=== PATIENT | male | born 1960 | race Caucasian/White ===

== ENCOUNTER → 2021-03-04 10:39 | Outpatient (BNVA) | payer BC, SELFPAY | PROVIDERS: Visit Provider Urology | DX: N30.10 Interstitial cystitis (chronic) without hematuria (principal); R35.1 Nocturia | CPT/HCPCS: 51798; 81002 ==

== ENCOUNTER → 2022-12-20 13:59 | Outpatient (BNVA) | payer BC, SELFPAY | PROVIDERS: PCP Internal Medicine; Visit Provider Nurse Practitioner Family | DX: R35.1 Nocturia (principal); N30.10 Interstitial cystitis (chronic) without hematuria | CPT/HCPCS: 51798 ==

== ENCOUNTER 2023-01-13 09:49 | Outpatient (REF) | payer BC, SELFPAY ==
--- NOTE | ~2023-01-13 | US_ITS ---
EXAMINATION: US RETROPERITONEAL COMPLETE (RENAL) CLINICAL INFORMATION: Nocturia. COMPARISON: CT pelvis 10/27/2011. TECHNIQUE: Real-time imaging of the kidneys and bladder. FINDINGS: RIGHT KIDNEY: 11.7 x 5.9 x 4.7 cm (SAG x AP x TRV). The kidney is normal in size, contour, and echogenicity. Renal cortical thickness is normal. No calculi or focal parenchymal lesions. No hydronephrosis. LEFT KIDNEY: 11.5 x 5.8 x 5.4 cm (SAG x AP x TRV). The kidney is normal in size, contour, and echogenicity. Renal cortical thickness is normal. No calculi or focal parenchymal lesions. No hydronephrosis. BLADDER: Well distended and normal. Bilateral ureteral jets are demonstrated. Prevoid bladder volume is 211.8 mL. Postvoid bladder volume is 38.0 mL. Enlarged heterogeneous prostate, volume 98 mL. US/US retroperitoneal comp IMPRESSION: Normal-appearing kidneys. BPH with 98 mL prostate and 38 mL postvoid residual.
== END 2023-01-13 09:50 | disposition home or self-care (01) ==
LOC: HO.US 09:49
PROVIDERS: PCP Internal Medicine; Visit Provider Urology
DX: R35.1 Nocturia (principal); N30.10 Interstitial cystitis (chronic) without hematuria
CPT/HCPCS: 76770

== ENCOUNTER → 2023-02-03 14:39 | Outpatient (BNVA) | payer BC, SELFPAY | PROVIDERS: PCP Internal Medicine; Visit Provider Nurse Practitioner Family | DX: Z13.89 Encounter for screening for other disorder (principal) ==

== ENCOUNTER 2023-08-18 14:33 | Outpatient (AMB) | payer BC, SELFPAY ==
--- NOTE | 2023-08-18 14:40 | MHC.OFFVIS ---
Intake Intake Visit Reasons: 6mo follow up pvr/ PSA(set) Intake Note: Patient is present for follow up visiut interstitial cystitis/nocturia/psa (psa 2.1) Urology Medications: D/C alfuzosin, finasteride Blood Thinner: aspirin PVR: 0ml's Firer Automatic Stoker Required: No Accompanied by: Self / Same As Patient Allergies hazelnut Allergy (Severe, Unverified 08/18/23 15:08) ORAL SWELLING Medication List - Last Reconciled 08/18/23 by MYKEL Smyth- alfuzosin ER 10 mg PO BEDTIME 90 days aspirin 81 mg PO DAILY atorvastatin 20 mg PO DAILY finasteride 5 mg PO DAILY 90 days valsartan-hydrochlorothiazide 160-12.5 mg 1 tab PO DAILY HPI HPI Comments History of Present Illness Details Per is a pleasant 62-year-old male patient of . He presents to the office today for follow-up of his interstitial cystitis and benign prostatic hyperplasia. Recent PSA results reviewed with the patient today. PSAs are as follows. 01/05--3.9 08/05--2.1 When asked patient reports compliance with 5 mg of finasteride daily. Previous workup has included a retroperitoneal ultrasound noting normal appearing kidneys. BPH with 98 mL prostate and 38 mL postvoid residual. Patient reports he has since stopped taking alfuzosin as he feels lower urinary tract symptoms have improved significantly. He denies urinary urgency, urinary frequency, incontinence, nocturia, hematuria, dysuria, foul smelling urine, changes to urinary stream, flank pain, fever, and or chills. He otherwise offers no issues or concerns at this time. Review of Systems Const All systems reviewed & are unremarkable except as noted in HPI and below Reports no additional complaints Eyes Reports no additional complaints ENT Reports no additional complaints Card Reports no additional complaints Resp Reports no additional complaints GI Reports no additional complaints Reports as per HPI Musc Reports no additional complaints Neuro Reports no additional complaints Psych Reports no additional complaints Endo Reports no additional complaints Jarrod/Lymph Reports no additional complaints Aller/Immun Reports no additional complaints Physical Exam Const General: cooperative, healthy appearing, comfortable, no acute distress, well developed, alert and awake Nutritional Appearance: average body habitus Orientation/consciousness: patient oriented x3 Limitations: no limitations HEENT Head: Yes normal to inspection, Yes normocephalic and Yes atraumatic Ears: hearing grossly normal bilaterally Eyes General: appearance normal, both eyes and all related structures Neck Neck: Yes normal visual inspection and Yes trachea midline Chest Chest palpation & inspection: normal inspection of the chest Resp Effort & Inspection: normal respiratory effort and able to speak in complete sentences Cardio Rate: regular rate GI Inspection: Yes normal to inspection General: Yes no CVA tenderness Back/Spine/Pelvis Back: no CVA tenderness Skin General skin exam: no rashes or lesions noted Neuro General: patient oriented x3 Extrem General: Yes normal to inspection Psych Appearance: grossly normal and well kempt Mental Status: mental status grossly normal Speech and movement: Normal speech and movement present and Clear speech present Affect: normal affect Attitude: cooperative Thought process: Normal thought process present Thought content: Normal thought content present Insight: Fair insight present (Psych) Judgement: Fair judgement present (Psych) Office Procedures Post Void Residual Post Residual Void Post Void Residual (PVR): 0 [id number]-[id number] Void Residual by ultrasound Results AMB Urinalysis, Automated UA Leukoctes 0 Jonas/uL Last Edit by beRecruited on 08/18/23 14:59 UA Nitrite Negative Last Edit by beRecruited on 08/18/23 14:59 UA Urobilinogen 0.2 mg/dL Last Edit by beRecruited on 08/18/23 14:59 UA Protein 0 mg/dL Last Edit by beRecruited on 08/18/23 14:59 UA pH 6.0 Last Edit by beRecruited on 08/18/23 14:59 UA Blood 0 Kirk/uL Last Edit by beRecruited on 08/18/23 14:59 UA Specific [place] 1.020 Last Edit by beRecruited on 08/18/23 14:59 UA Ketone Negative Last Edit by beRecruited on 08/18/23 14:59 UA Bilirubin 0 mg/dL Last Edit by beRecruited on 08/18/23 14:59 UA Glucose 0 mg/dL Last Edit by beRecruited on 08/18/23 14:59 Results Reviewed Results Reviewed: Laboratory Last Values Urine pH (Auto) 6.0 08/18/23 14:43 Specific [place] (Auto) 1.020 08/18/23 14:43 Urine Protein (Auto) 0 mg/dL 08/18/23 14:43 Glucose (UA)(Auto) 0 mg/dL 08/18/23 14:43 Urine Ketones (Auto) Negative 08/18/23 14:43 Urine Blood (Auto) 0 Kirk/uL 08/18/23 14:43 Urine Nitrite (Auto) Negative 08/18/23 14:43 Urine Bilirubin (Auto) 0 mg/dL 08/18/23 14:43 Urine Urobilinogen (Auto) 0.2 mg/dL 08/18/23 14:43 Leukocyte Esterase (Auto) 0 Jonas/uL 08/18/23 14:43 Assessment & Plan Assessment & Plan (1) BPH loc w urin obs/LUTS: Code(s): N40.1 - Benign prostatic hyperplasia with lower urinary tract symptoms Plan In office urinalysis results reviewed with the patient today. PVR 0 mL. Continue finasteride 5 mg daily as discussed and prescribed. Patient denies any bothersome urinary issues or concerns at this time. Recent PSA results reviewed with the patient today; as noted above. PSA in 6 months. Stop Alfuzosin Follow-up in 6 months with PSA to be completed prior; or sooner with any issues, concerns, and or questions. Orders: Orders AMB Urinalysis Automated 08/18/23 Z13.9 - Encounter for screening, unspecified AMB Post Void Residual by ultrasound 08/18/23 N40.1 - Benign prostatic hyperplasia with lower urinary tract symptoms Prostate Specific Antigen 6 Months N40.1 - Benign prostatic hyperplasia with lower urinary tract symptoms Medications: Discontinued alfuzosin ER Take before bedtime Discontinued Reason: Change Referral Type 10 mg PO BEDTIME 90 tabs 1RF 90 days N32.0 - Bladder-neck obstruction, N40.1 - Benign prostatic hyperplasia with lower urinary tract symptoms, R33.9 - Retention of urine, unspecified, R35.1 - Nocturia, R39.12 - Poor urinary stream Patient Instructions: The patient had an opportunity to ask questions regarding the treatment plan. All questions were answered. Physical exam, labs, and imaging were discussed and reviewed in detail. As well as risks, benefits, and discussion of treatment choices. No major barriers to understanding were identified. The patient expressed understanding and agreement with the above treatment plan. The patient was made aware they should contact our office by phone for worsening of their current condition, the appearance of new symptoms, or with any questions or concerns. Compliance is encouraged with any medications and follow up testing that is ordered. It is a privilege to be allowed the opportunity to participate in? your urological care.? Again, if you have any questions or concerns If you have any questions or concerns please do not hesitate to contact me. The office is [phone]. This note is constructed using voice recognition software. While every effort has been made to ensure accuracy theater technician errors may have been included. Yours sincerely, MYKEL Smyth-ABHILASH Coding Level of Care Code Est Pt Level 3 (54662) Diagnoses BPH loc w urin obs/LUTS N40.1 CPT Codes Post Residual Void - PVR CPT Code: 57824-Bgmw Void Residual by ultrasound ([id number])
== END 2023-08-18 15:08 | disposition home or self-care (01) ==
PROVIDERS: PCP Internal Medicine; Visit Provider Nurse Practitioner Family
DX: Z13.9 Encounter for screening, unspecified (principal)
CPT/HCPCS: 99213

== ENCOUNTER → 2023-08-18 14:33 | Outpatient (BNVA) | payer BC, SELFPAY | PROVIDERS: Visit Provider Nurse Practitioner Family | DX: N40.1 Benign prostatic hyperplasia with lower urinary tract symptoms (principal); N13.8 Other obstructive and reflux uropathy; N30.10 Interstitial cystitis (chronic) without hematuria; Z79.899 Other long term (current) drug therapy | CPT/HCPCS: 51798; 81003 ==

== ENCOUNTER 2024-02-22 13:36 | Outpatient (AMB) | payer MEDICARE, SELFPAY ==
--- NOTE | 2024-02-22 13:42 | A.OFFVIS_ITS ---
Intake Intake Visit Reasons: 6m/PSA/PVR(set) Intake Note: Patient presents today for a follow up on: PSA/PVR Meds- Finasteride Allergies to Antibiotic- No Known Allergies Blood Thinner- Xarelto 20mg Post Void Residual: 0ml Surgical Orderly Required: No Accompanied by: Self / Same As Patient Allergies hazelnut Allergy (Severe, Verified 02/22/24 20:53) ORAL SWELLING Medication List - Last Reconciled 02/22/24 by MYKEL Smyth- atorvastatin 20 mg PO DAILY diltiazem HCl ER 120 mg PO DAILY finasteride 5 mg PO DAILY 90 days rivaroxaban (Xarelto) 20 mg PO DAILY valsartan-hydrochlorothiazide 160-12.5 mg 1 tab PO DAILY HPI HPI Comments History of Present Illness Details Setven is a pleasant 63-year-old male patient of Dr. Barakat. He presents to the office today for follow-up of his interstitial cystitis and benign prostatic hyperplasia. Recent PSA results reviewed with the patient today. PSAs are as follows. 01/05--3.9 08/05--2.1 03/05--1.2 When asked patient reports compliance with 5 mg of finasteride daily. Previous workup has included a retroperitoneal ultrasound noting normal appearing kidneys. BPH with 98 mL prostate and 38 mL postvoid residual. When asked he denies urinary urgency, urinary frequency, incontinence, nocturia, hematuria, dysuria, foul smelling urine, changes to urinary stream, flank pain, fever, and or chills. He has since stopped taking his alfuzosin as he feels his lower urinary tract symptoms have significantly improved. He discusses his upcoming trip for 5 months in [place]. He discusses his excitement to a build home there. In discussion with the patient today regarding his urological issues and concerns he does report noting low libido. Discussed further workup. He otherwise offers no issues or concerns at this time. Review of Systems Const All systems reviewed & are unremarkable except as noted in HPI and below Reports no additional complaints Eyes Reports no additional complaints ENT Reports no additional complaints Card Reports no additional complaints Resp Reports no additional complaints GI Reports no additional complaints Reports as per HPI Musc Reports no additional complaints Neuro Reports no additional complaints Psych Reports no additional complaints Endo Reports no additional complaints Jarrod/Lymph Reports no additional complaints Aller/Immun Reports no additional complaints Physical Exam Const General: cooperative, healthy appearing, comfortable, no acute distress, well d eveloped, alert and awake Nutritional Appearance: average body habitus Orientation/consciousness: patient oriented x3 Limitations: no limitations HEENT Head: Yes normal to inspection, Yes normocephalic and Yes atraumatic Ears: hearing grossly normal bilaterally Eyes General: appearance normal, both eyes and all related structures Neck Neck: Yes normal visual inspection and Yes trachea midline Chest Chest palpation & inspection: normal inspection of the chest Resp Effort & Inspection: normal respiratory effort and able to speak in complete sentences Cardio Rate: regular rate GI Inspection: Yes normal to inspection General: Yes no CVA tenderness Back/Spine/Pelvis Back: no CVA tenderness Skin General skin exam: no rashes or lesions noted Neuro General: patient oriented x3 Extrem General: Yes normal to inspection Psych Appearance: grossly normal and well kempt Mental Status: mental status grossly normal Speech and movement: Normal speech and movement present and Clear speech present Affect: normal affect Attitude: cooperative Thought process: Normal thought process present Thought content: Normal thought content present Insight: Fair insight present (Psych) Judgement: Fair judgement present (Psych) Office Procedures Post Void Residual Post Residual Void Post Void Residual (PVR): 0 [id number] Void Residual by ultrasound Results AMB Urinalysis, Automated UA Leukoctes 0 Jonas/uL Last Edit by Idalia Gaytan CMA on 02/22/24 14 :04 UA Nitrite Negative Last Edit by Idalia Gaytan CMA on 02/22/24 14: 04 UA Urobilinogen 0.2 mg/dL Last Edit by Idalia Gaytan CMA on 4 14:04 UA Protein 0 mg/dL Last Edit by Idalia Gaytan CMA on 02/22/24 14:04 UA pH 7.0 Last Edit by Idalia Gaytan CMA on 02/22/24 14:04 UA Blood 0 Kirk/uL Last Edit by Idalia Gaytan CMA on 02/22/24 14:04 UA Specific [place] 1.015 Last Edit by Idalia Gaytan CMA on 14:04 UA Ketone Negative Last Edit by Idalia Gaytan CMA on 02/22/24 14:0 4 UA Bilirubin 0 mg/dL Last Edit by Idalia Gaytan CMA on 02/22/24 14: 04 UA Glucose 0 mg/dL Last Edit by Idalia Gaytan CMA on 02/22/24 14:04 Results Reviewed Results Reviewed: Laboratory Last Values Urine pH (Auto) 7.0 02/22/24 14:03 Specific [place] (Auto) 1.015 02/22/24 14:03 Urine Protein (Auto) 0 mg/dL 02/22/24 14:03 Glucose (UA)(Auto) 0 mg/dL 02/22/24 14:03 Urine Ketones (Auto) Negative 02/22/24 14:03 Urine Blood (Auto) 0 Kirk/uL 02/22/24 14:03 Urine Nitrite (Auto) Negative 02/22/24 14:03 Urine Bilirubin (Auto) 0 mg/dL 02/22/24 14:03 Urine Urobilinogen (Auto) 0.2 mg/dL 02/22/24 14:03 Leukocyte Esterase (Auto) 0 Jonas/uL 02/22/24 14:03 Assessment & Plan Assessment & Plan (1) Nocturia more than twice per night: Code(s): R35.1 - Nocturia (2) BPH loc w urin obs/LUTS: Code(s): N40.1 - Benign prostatic hyperplasia with lower urinary tract symptoms (3) Low libido: Code(s): R68.82 - Decreased libido Plan In office urinalysis results reviewed with the patient today; as noted above. PVR 0 mL. Recent PSA results reviewed with the patient today; as noted above. Discussed decreasing dose of finasteride to 3 times per week. Discussed at length lifestyle modifications to assist with low libido and ED patient is experiencing. Patient currently denies any bothersome urinary issues or concerns. He reports a significant improvement in lower urinary tract symptoms he had been experiencing. He is happy with his current voiding parameters. Will obtain PSA, testosterone, and free testosterone in 6 months Follow-up in 6 months with labs to be completed prior; or sooner with any issues, concerns, and or questions. Orders: Orders AMB Post Void Residual by ultrasound Today R33.9 - Retention of urine, unspecified AMB Urinalysis Automated Today R33.9 - Retention of urine, unspecified Testosterone, Free/Total 6 Months R68.82 - Decreased libido Prostate Specific Antigen 6 Months N40.1 - Benign prostatic hyperplasia with lower urinary tract symptoms, R35.1 - Nocturia Medications: Changed From finasteride 5 mg PO DAILY 90 days 90 tabs 1RF N40.0 - Benign prostatic hyperplasia without lower urinary tract symptoms To finasteride 5 mg orally 3 times per week; 90 days 45 tabs 3RF N40.0 - Benign prostatic hyperplasia without lower urinary tract symptoms Patient Instructions: The patient had an opportunity to ask questions regarding the treatment plan. All questions were answered. Physical exam, labs, and imaging were discussed and reviewed in detail. As well as risks, benefits, and discussion of treatment choices. No major barriers to understanding were identified. The patient expressed understanding and agreement with the above treatment plan. The patient was made aware they should contact our office by phone for worsening of their current condition, the appearance of new symptoms, or with any questions or concerns. Compliance is encouraged with any medications and follow up testing that is ordered. It is a privilege to be allowed the opportunity to participate in? your urological care.? Again, if you have any questions or concerns If you have any questions or concerns please do not hesitate to contact me. The office is [phone]. This note is constructed using voice recognition software. While every effort has been made to ensure accuracy lumber handler errors may have been included. Yours sincerely, LISSY Smyth Coding Level of Care Code Est Pt Level 3 (78476) Diagnoses Nocturia more than twice per night R35.1 BPH loc w urin obs/LUTS N40.1 Low libido R68.82 CPT Codes Post Residual Void - PVR CPT Code: 28928-Rvyg Void Residual by ultrasound ([id number])
== END 2024-02-22 14:31 | disposition home or self-care (01) ==
LOC: HO.HUSH 13:36
PROVIDERS: PCP Internal Medicine; Visit Provider Nurse Practitioner Family
DX: N40.1 Benign prostatic hyperplasia with lower urinary tract symptoms (principal); R35.1 Nocturia; R68.82 Decreased libido
CPT/HCPCS: 99213

== ENCOUNTER → 2024-02-22 13:36 | Outpatient (BNVA) | payer MEDICARE, SELFPAY | PROVIDERS: PCP Internal Medicine; Visit Provider Nurse Practitioner Family | DX: N40.1 Benign prostatic hyperplasia with lower urinary tract symptoms (principal); R35.1 Nocturia; R68.82 Decreased libido | CPT/HCPCS: 51798; 81003; 99212 ==

== ENCOUNTER 2024-09-19 07:34 | Outpatient (AMB) | payer MEDICARE, SELFPAY ==
--- NOTE | 2024-09-19 07:41 | A.OFFVIS_ITS ---
Intake Visit Reasons: 6m/PSA/Testo Intake Note: Patient presents today for a follow up on: low libido, nocturia, BPH, and lab results Testosterone: 560; free testosterone: 5.3; PSA: 1.4 Urology Medications: Finasteride Allergies to Antibiotic- No Known Allergies Blood Thinner: Xarelto Post Void Residual: 17ml's Laboratory Mechanical Technician Required: No Accompanied by: Self / Same As Patient Allergies hazelnut Allergy (Severe, Verified 09/19/24 08:40) ORAL SWELLING Medication List - Last Reconciled 09/19/24 by MYKEL Smyth-ABHILASH atorvastatin 20 mg PO DAILY diltiazem HCl ER 120 mg PO DAILY finasteride 5 mg orally 3 times per week; 90 days rivaroxaban (Xarelto) 20 mg PO DAILY valsartan-hydrochlorothiazide 160-12.5 mg 1 tab PO DAILY HPI Comments Details: Steven is a pleasant 63-year-old male patient of Dr. Barakat. He presents to the office today for follow-up of his interstitial cystitis and benign prostatic hyperplasia. Recent PSA results reviewed with the patient today. PSAs are as follows. 01/05 3.9, 08/05 2.1, 03/05 1.2, 10/06 1.4 Testosterone:09/16 560, free testosterone 10/06 5.3 When asked patient reports compliance with 5 mg of finasteride every other day as prescribed. When asked he reports to be doing and feeling well. He denies any bothersome urinary issues or concerns since his last office visit here 6 months ago. Previous workup has included a retroperitoneal ultrasound noting normal appearing kidneys. BPH with 98 mL prostate and 38 mL postvoid residual. When asked he denies urinary urgency, urinary frequency, incontinence, nocturia, hematuria, dysuria, foul smelling urine, changes to urinary stream, flank pain, fever, and or chills. He had previously been on alfuzosin however feels lower urinary tract symptoms have subsided and is no longer taking the medication. In office urinalysis results reviewed with the patient today. PVR 17 mL. He otherwise offers no issues or concerns at this time. Review of Systems Const All systems reviewed & are unremarkable except as noted in HPI and below Reports no additional complaints Eyes Reports no additional complaints ENT Reports no additional complaints Card Reports no additional complaints Resp Reports no additional complaints GI Reports no additional complaints Reports as per HPI Musc Reports no additional complaints Neuro Reports no additional complaints Psych Reports no additional complaints Endo Reports no additional complaints Jarrod/Lymph Reports no additional complaints Aller/Immun Reports no additional complaints Physical Exam Const General: cooperative, healthy appearing, comfortable, no acute distress, well developed, alert and awake Nutritional Appearance: average body habitus Orientation/consciousness: patient oriented x3 Limitations: no limitations HEENT Head: Yes normal to inspection, Yes normocephalic and Yes atraumatic Ears: hearing grossly normal bilaterally Eyes General: appearance normal, both eyes and all related structures Neck Neck: Yes normal visual inspection and Yes trachea midline Chest Chest palpation & inspection: normal inspection of the chest Resp Effort & Inspection: normal respiratory effort and able to speak in complete sentences Cardio Rate: regular rate GI Inspection: Yes normal to inspection General: Yes no CVA tenderness Back/Spine/Pelvis Back: no CVA tenderness Skin General skin exam: no rashes or lesions noted Neuro General: patient oriented x3 Extrem General: Yes normal to inspection Psych Appearance: grossly normal and well kempt Mental Status: mental status grossly normal Speech and movement: Normal speech and movement present and Clear speech present Affect: normal affect Attitude: cooperative Thought process: Normal thought process present Thought content: Normal thought content present Insight: Fair insight present (Psych) Judgement: Fair judgement present (Psych) Office Procedures Post Void Residual Post Residual Void Post Void Residual (PVR): 17 [id number] Void Residual by ultrasound Results AMB Urinalysis, Automated UA Leukoctes 0 Jonas/uL Last Edit by Product Hunte Giuseppe on 09/19/24 07:55 UA Nitrite Last Edit by [employer]y Chin on 09/19/24 07:55 UA Urobilinogen 0.2 mg/dL Last Edit by Product Huntcony Chin on 09/19/24 07:55 UA Protein 15 mg/dL Last Edit by SamuelMarketInvoicecony Chin on 09/19/24 07:55 UA pH 6.0 Last Edit by Marcy Chin on 09/19/24 07:55 UA Blood 0 Kirk/uL Last Edit by Marcy Chin on 09/19/24 07:55 UA Specific [place] 1.020 Last Edit by Marcy Chin on 09/19/24 07:55 UA Ketone Negative Last Edit by Marcy Chin on 09/19/24 07:55 UA Bilirubin 0 mg/dL Last Edit by Marcy Chin on 09/19/24 07:55 UA Glucose 0 mg/dL Last Edit by Marcy Chin on 09/19/24 07:55 Results Reviewed Results Reviewed: Laboratory Last Values Urine pH (Auto) 6.0 09/19/24 07:48 Specific [place] (Auto) 1.020 09/19/24 07:48 Urine Protein (Auto) 15 mg/dL 09/19/24 07:48 Glucose (UA)(Auto) 0 mg/dL 09/19/24 07:48 Urine Ketones (Auto) Negative 09/19/24 07:48 Urine Blood (Auto) 0 Kirk/uL 09/19/24 07:48 Urine Bilirubin (Auto) 0 mg/dL 09/19/24 07:48 Urine Urobilinogen (Auto) 0.2 mg/dL 09/19/24 07:48 Leukocyte Esterase (Auto) 0 Jonas/uL 09/19/24 07:48 Assessment & Plan Assessment & Plan (1) Nocturia more than twice per night: Code(s): R35.1 - Nocturia Category: Medical (2) BPH loc w urin obs/LUTS: Code(s): N40.1 - Benign prostatic hyperplasia with lower urinary tract symptoms Category: Medical (3) Low libido: Code(s): R68.82 - Decreased libido Category: Medical Plan In office urinalysis results reviewed with the patient today; as noted above. PVR 17 mL. Recent PSA, testosterone, and free testosterone results reviewed with the patient today; as noted above. Continue finasteride 3 times per week Discussed at length lifestyle modifications to assist with low libido and ED patient is experiencing. Patient currently denies any bothersome urinary issues or concerns. He reports a significant improvement in lower urinary tract symptoms he had been experiencing. He is happy with his current voiding parameters. Will obtain PSA, testosterone, and free testosterone in 1 year Follow-up in 1 year with labs to be completed prior; or sooner with any issues, concerns, and or questions. Orders: Orders AMB Urinalysis Automated Today Z13.9 - Encounter for screening, unspecified Prostate Specific Antigen 1 Year N40.1 - Benign prostatic hyperplasia with lower urinary tract symptoms, R68.82 - Decreased libido AMB Post Void Residual by ultrasound Today N40.1 - Benign prostatic hyperplasia with lower urinary tract symptoms Testosterone, Free/Total 1 Year N40.1 - Benign prostatic hyperplasia with lower urinary tract symptoms, R68.82 - Decreased libido Patient Instructions: The patient had an opportunity to ask questions regarding the treatment plan. All questions were answered. Physical exam, labs, and imaging were discussed and reviewed in detail. As well as risks, benefits, and discussion of treatment choices. No major barriers to understanding were identified. The patient expressed understanding and agreement with the above treatment plan. The patient was made aware they should contact our office by phone for worsening of their current condition, the appearance of new symptoms, or with any questions or concerns. Compliance is encouraged with any medications and follow up testing that is ordered. It is a privilege to be allowed the opportunity to participate in? your urological care.? Again, if you have any questions or concerns If you have any questions or concerns please do not hesitate to contact me. The office is [phone]. This note is constructed using voice recognition software. While every effort has been made to ensure accuracy castings trimmer errors may have been included. Yours sincerely, LISSY Smyth Coding Level of Care Code Est Pt Level 3 (69585) Diagnoses Nocturia more than twice per night R35.1 BPH loc w urin obs/LUTS N40.1 Low libido R68.82 CPT Codes Post Residual Void - PVR CPT Code: 38623-Xxtg Void Residual by ultrasound ([id number])
== END 2024-09-19 08:10 | disposition home or self-care (01) ==
LOC: HO.HUSH 07:35
PROVIDERS: PCP Internal Medicine; Visit Provider Nurse Practitioner Family
DX: N40.1 Benign prostatic hyperplasia with lower urinary tract symptoms (principal); R35.1 Nocturia; R68.82 Decreased libido; Z13.9 Encounter for screening, unspecified
CPT/HCPCS: 99213

== ENCOUNTER → 2024-09-19 07:34 | Outpatient (BNVA) | payer MEDICARE, SELFPAY | PROVIDERS: PCP Internal Medicine; Visit Provider Nurse Practitioner Family | DX: N40.1 Benign prostatic hyperplasia with lower urinary tract symptoms (principal); R68.82 Decreased libido; R35.1 Nocturia | CPT/HCPCS: 51798; 81003; 99212 ==